=== PATIENT | male | born 1955 | race Caucasian/White ===

== ENCOUNTER 2016-10-23 15:52 | Emergency (ER) | payer OTHER ==
[~2016-10-23] VITALS: Ht 185.4 cm; Wt 119.1 kg
[2016-10-23 16:11] VITALS: BP 160/85; PULSE 80; RESP 11; O2SAT 96
[2016-10-23] MEDS ORDERED: 0.9% Sodium Chloride 1,000 ML IV ONE (16:24)
[2016-10-23] MEDS ORDERED: Ondansetron 2 mg/mL 2 mL Inj IVPUSH ONE (16:25)
[2016-10-23] MEDS ORDERED: HYDROmorphone 0.5 mg/0.5 mL iSecure Syringe IVPUSH PRN (16:25)
--- NOTE | 2016-10-23 16:27 | ED.REPORT ---
HPI-General Illness Date of Service Oct 23, 2016 ED Provider: Mal Castro MD A 61 year old male with a history of hypertension and prostatitis presents to the ED due to an episode of lightheadedness. The pt was going to be seen by urology today, but began feeling dizzy, diaphoretic, lightheaded, confused and shaky while waiting to be seen. This occurred after the nurse left and the pt was alone. He initially believed that his symptoms were due to anxiety but is not sure. The pt had the appointment for urology to follow up after finishing the 14 day course Bactrim prescribed for his prostatitis 2.5 weeks ago. He denies fever, chest pain, shortness of breath, slurred speech, or facial droop. The pt takes Metoprolol 50 mg BID and recently stopped taking Lorazepam. The pt is also complaining of left abdominal and flank pain and numbness radiating down his left thigh that has been present since 05/2016, but does not believe that this is related to his current condition. Nursing Notes Stated Complaint: LEFT FLANK PAIN Chief Complaint: Male Abdominal Pain Nursing Notes Reviewed: Yes Allergies: Coded Allergies: No Known Allergies (Unverified , 10/23/16) Scheduled PRN Hydrocodone-Acetaminophen 5-325 mg (Hydrocodone-Acetaminophen 5-325 mg) 1 Each Tablet 1 TABLET PO Q4H PRN PRN For Pain General Time Seen by MD: 16:17 Chief Complaint Other (Lightheadedness) Hx Obtained From: Patient Arrived By: Walk-in Sudden in Onset?: Yes Onset Occurred: 1 - 4 hours ago Recent Healthcare: No recent hospitalization, Recent doctor visit Similar Sx Previous: No Past Medical History Past Medical History hypertension prostatitis Past Surgical History none reported Smoking History Unknown if Ever Smoker Social History Other Social History: Good social support Ambulatory Status Independent Review of Systems denies facial droop Full Review of Systems Constitutional: Denies: Fever Respiratory: Denies: Shortness of breath Cardiovascular: Denies: Chest pain GI: Reports: Abdominal pain Male: Reports Flank pain Musculoskeletal: Reports: Extremity pain Skin: Reports Diaphoresis, Denies Rash Neurologic: Reports: Confusion, Dizziness, Lightheaded, Numbness, Shaking, Weakness, Denies: Slurred speech Psychiatric: Reports: Anxiety Complete sys rev & neg: except as marked. Physical Exam Vital Signs Vital Signs Date Time Temp Pulse Resp B/P Pulse Ox O2 Delivery O2 Flow Rate FiO2 10/23/16 18:05 70 18 137/74 10/23/16 16:11 37.3 80 11 160/85 96 Room Air Initial VS: Reviewed General/Constitutional: Awake, Alert no facial droop speech fluent, linear, well-organized Head / Eyes: Atraumatic, Normocephalic, PERRL, EOMI ENT: Atraumatic, Airway patent, Mucous membranes moist Neck: Atraumatic, Supple, Full range of motion Respiratory / Chest: Atraumatic, Breath sounds NL, Breath sounds = bilat, No respiratory distress Cardiovascular: Heart rate NL, Regular rhythm, Heart sounds NL good distal pulses Abdomen: Atraumatic, Soft, Non-tender, No distention Back: Atraumatic, Full range of motion mild percussive flank tenderness on left Upper Extremities Upper Extremity / MS: Atraumatic, 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 sensation and strength intact in bilateral upper extremities Lower Extremity / Pelvis / MS: Atraumatic, Full range of motion sensation and strength intact in bilateral lower extremities Skin: Atraumatic, Color NL, No rash, Warm, Dry Male Genitourinary: Atraumatic, Penis NL normal testicular lie no redness or swelling normal circumcised penis no swelling or tenderness in groin region Rectum / Perineum: Atraumatic, No gross blood no fissures, fluctuance, or hemorrhoids about prostate brown stool Neurologic: Oriented X3, Speech NL, No motor deficits, No sensory deficits, CN II - XII intact Psychiatric: Affect NL, Mood NL Interpretation & Diagnostics Interpretation & Diagnostics: CT KUB: IMPRESSION: 1. 2 mm nonobstructing left renal stone. 2. Bilateral perinephric stranding. Finding is nonspecific may represent senescent change versus infectious process. Please correlate with clinical data. 3. Indeterminate hypoattenuating lesions in the kidneys in the right lower liver. 4. Colonic diverticulosis without evidence of diverticulitis. Dictated by: America Gillette MD, PhD on 10/23/2016 at 17:05 Approved by: America Gillette MD, PhD on 10/23/2016 at 17:10 Lab Results Interpretation Result Diagram: 10/23/16 1634 10/23/16 1605 Test 10/23/16 16:05 10/23/16 16:34 10/23/16 16:35 10/23/16 16:37 Sodium Level 133mEq/L (134-144) Potassium Level 4.5mEq/L (3.5-5.2) Chloride Level 94mEq/L (97-108) Carbon Dioxide Level 20mmol/L (18-29) Blood Urea Nitrogen 20mg/dL (8-27) Creatinine 1.89mg/dL (0.76-1.27) Estimat Glomerular Filtration Rate 38mL/min (>59) Glucose Level 105mg/dL (60-99) Calcium Level 10.2mg/dL (8.5-10.1) Magnesium Level 1.7mg/dL (1.6-2.6) Total Bilirubin 0.3mg/dL (0.0-1.2) Aspartate Amino Transf (AST/SGOT) 49U/L (0-50) Alanine Aminotransferase (ALT/SGPT) 62U/L (0-44) Alkaline Phosphatase 33U/L (25-160) Total Protein 7.1g/dL (6.4-8.4) Albumin 4.8g/dL (3.4-5.0) Lipase 47U/L (13-60) White Blood Count 3.9th/mm3 (3.8-10.1) Red Blood Count 4.03mil/mm3 (4.40-5.80) Hemoglobin 13.3g/dL (13.8-17.2) Hematocrit 38.2% (41.0-50.0) Mean Corpuscular Volume 94.8fL (81-100) Mean Corpuscular Hemoglobin 33.0pg (27.0-35.0) Mean Corpuscular Hemoglobin Concent 34.8% (32.0-37.0) Red Cell Distribution Width 12.6% (12.3-15.4) Platelet Count 177bil/L (150-400) Neutrophils (%) (Auto) 69.2% (40-74) Lymphocytes (%) (Auto) 13.9% (14-46) Monocytes (%) (Auto) 13.7% (4-12) Eosinophils (%) (Auto) 2.1% (0-5) Basophils (%) (Auto) 0.8% (0-3) Hold Junior Top Tube Received (Received) Urine Color Straw (YELLOW) Urine Appearance Clear (CLEAR,HAZY) Urine pH 5.5 (5.0-8.0) Urine Specific [place] 1.020 (1.003-1.035) Urine Protein Negativemg/dL (NEG,TRACE) Urine Glucose (UA) Negativemg/dL (NEGATIVE) Urine Ketones Negativemg/dL (NEGATIVE) Urine Occult Blood Large (NEGATIVE) Urine Nitrite Negative (NEGATIVE) Urine Bilirubin Negative (NEGATIVE) Urine Urobilinogen Normalmg/dL (NORMAL) Urine Leukocyte Esterase Negative (NEGATIVE) Urine RBC 11-50/hpf (0-2) Urine WBC 0-5/hpf (0-5) Urine Epithelial Cells None/hpf (NONE-MOD) Urine Crystals None seen (NONE SEEN) Urine Bacteria None/hpf (NONE-FEW) Urine Hyaline Casts None/lpf (NONE) Urine Granular Casts None seen (NONE SEEN) Urine Waxy Casts None seen (NONE SEEN) Urine Red Blood Cell Casts None seen (NONE SEEN) Urine White Blood Cell Casts None seen (NONE SEEN) Urine Mucus None seen (None Seen) Urine Trichomonas None seen (NONE SEEN) Urine Yeast None (NONE SEEN) Urinalysis Comment None Urine Culture Reflexed Not indicated ECG Interpretation ECG Interpretation: normal sinus rhythm with a rate of 64 left axis deviation no acute ST segment changes or T wave abnormalities no prior available for comparison Time: 17:50 Interpreted by: ED physician Re-Eval/Medical Decision Med Decision/Clinical Course A 61 year old male with a history of hypertension and prostatitis presents to the ED due to an episode of lightheadedness. The pt was going to be seen by urology today, but began feeling dizzy, diaphoretic, lightheaded, confused and shaky while waiting to be seen. This occurred after the nurse left and the pt was alone. He initially believed that his symptoms were due to anxiety but is not sure. The pt had the appointment for urology to follow up after finishing the 14 day course Bactrim prescribed for his prostatitis 2.5 weeks ago. He denies fever, chest pain, shortness of breath, slurred speech, or facial droop. The pt takes Metoprolol 50 mg BID and recently stopped taking Lorazepam. The pt is also complaining of left abdominal and flank pain and numbness radiating down his left thigh that has been present since 05/2016, but does not believe that this is related to his current condition. [facility] the patient is afebrile with stable vital signs and in no apparent distress. and prostate exam are unremarkable. Laboratory studies were notable as below: CBC: no leukocytosis stable hematocrit CMP: sodium 133 bun 20 creat 1.89, elevated from prior 1.4 in 2006 otherwise unremarkable urinalysis notable for large blood negative leuk esterase no bacteria no signs of infection Given presence of hematuria on urinalysis and left flank pain I opted to obtain a CT KUB which demonstrated left ureteral stone as described above. Much of the patient's pain presentation is suggestive of underlying sciatica however the acute worsening of his pain in the setting of hematuria is suggestive of renal colic. There is no evidence of urinary tract infection on urinalysis and he is afebrile here in the emergency department. I do not feel that an additional course of antibiotics is warranted. Given his syncopal event earlier I am hesitant to give him Flomax and I do not feel that this is necessary given the small size of his stone. Because of the patient's isolated episode of lightheadedness remains unclear. I suspect that it was vasovagal or orthostatic in nature. History not suggestive of seizure or cardiac arrhythmia. EKG was obtained and interpreted by myself as documented above and patient had no arrhythmias on telemetry monitoring. I see no indication to admit the patient at this time. He was provided with a urine strainer and will follow up with urology as previously advised. Follow-up and return precautions were reviewed in detail and he was discharged in stable condition. Source of Hx: Old records Time of Eval: 17:34 Patient Status: Condition improved Re-Evaluation/Progress Note: Pt rechecked, who is comfortable. He is informed of his diagnosis and the plan for discharge. The pt understands and agrees with the plan. All questions are addressed at this time. Counseled Regarding: Diagnosis, Lab results, Need for follow-up, When/why to return to ED Discharge & Departure Primary Impression: Left ureteral stone Additional Impressions: Hematuria Acute kidney injury Lightheaded Disposition: Home Discharge Condition All VS Reviewed: Yes Condition: Stable Additional Instructions: Thank you for seeking care at emergency room. It is difficult for us to make definitive diagnoses in the ED but we believe that you are experiencing a left-sided kidney stone. Our primary goal today in the ED was to evaluate you for any life-threatening conditions. Your evaluation was reassuring. You will be discharged with a prescription for pain medication, please take as directed. Please use a urine strainer and call tomorrow morning to reschedule your appointment with the urologist. You should follow-up with your primary doctor in the next week. Kidney function was elevated today and needs to be rechecked in the next few days. Make sure to drink plenty of fluids. You should return to the ED immediately if you develop any worsening symptoms, fevers, vomiting, cough, shortness of breath, chest pain, lightheadedness, weakness or any other concerning signs or symptoms. Thank you for letting us partake in your care today. Referrals: John Bragg MD (PCP) Miguel Attestation Portions of this note were transcribed by Kathie Luciano. I, Dr. Castro personally performed the history, physical exam and medical decision-making; I reviewed and confirmed the accuracy of the information in the transcribed note. Signed by: Miguel Da Silva, 10/23/2016 and 1836. copies to: John Bragg MD, Beck O MD Oct 23, 2016 16:27 KATHIE LUCIANO Oct 23, 2016 17:19
[2016-10-23 16:48] LABS: BASOPHILS % (AUTO) 0.8 % (0-3); EOSINOPHILS % (AUTO) 2.1 % (0-5); MONOCYTES % (AUTO) 13.7 % (4-12); Mean Corpuscular Volume 94.8 fL (81-100); NEUTROPHILS % (AUTO) 69.2 % (40-74); Platelet Count 177 bil/L (150-400)
[2016-10-23 16:54] LABS: COLOR,URINE STRAW (YELLOW)
[2016-10-23 16:55] LABS: APPEARANCE,URINE CLEAR (CLEAR,HAZY); OCCULT BLOOD,URINE LARGE (NEGATIVE); PH,URINE 5.5 (5.0-8.0); UROBILINOGEN,URINE NORMAL (NORMAL)
--- NOTE | 2016-10-23 17:11 | DRSVH ---
PROCEDURE: CT KUB ([id number]) INDICATIONS: flank pain TECHNIQUE: Noncontrast 5 mm thick sections acquired from the diaphragms to the symphysis. 5 mm thick coronal an d sagittal reformats were then performed. For radiation dose reduction, the following was used: aut omated exposure control, adjustment of mA and/or kV according to patient size. COMPARISON: None. FINDINGS: Image quality: Excellent. Lung bases: Lung bases are clear. Heart size is normal. Urinary system: Both kidneys are normal in size. 2 mm nonobstructing stone within the midpole of the left kidney. No hydronephrosis. Bilateral perirenal stranding left greater than right is noted which is nonspecific may represent senescent change versus infection. Hypoattenuating lesions noted in the kidneys bilaterally which may represent cysts, however lesions cannot be definitively characterized without the benefit of intravenous contrast. Both ureters appear non-dilated throughout their expect ed courses. Bladder wall thickness is normal; no calcified bladder stones. Other solid organs: Liver and spleen are normal in size. Small hypoattenuating lesion noted in poste rior-superior subsegment of the right hepatic lobe which may represent a cyst or hemangioma, however lesion cannot be definitely characterized without the benefit of intravenous contrast. Gallbladder i s within normal limits. Pancreas is normal in contours. No adrenal nodules. Peritoneum and bowel: Unenhanced bowel loops demonstrate normal wall thickness and caliber. Scattere d diverticuli noted in the colon without evidence of diverticulitis. No free fluid or air. The append ix is normal. Nodes and vessels: No retroperitoneal or mesenteric adenopathy by size criteria. Aorta and inferior vena cava are normal in caliber. Scattered atherosclerotic calcifications are noted in the abdominal pelvic vasculature. Abdominal wall: No ventral hernias. Pelvis: No free pelvic fluid. No adenopathy. Small fat containing bilateral inguinal hernias. Prost ate calcifications are noted. Bones: No suspicious bony lesions. No vertebral body compression fractures. Spine degenerative disc disease and facet arthropathy noted. IMPRESSION: 1. 2 mm nonobstructing left renal stone. 2. Bilateral perinephric stranding. Finding is nonspecific may represent senescent change versus infe ctious process. Please correlate with clinical data. 3. Indeterminate hypoattenuating lesions in the kidneys in the right lower liver. 4. Colonic diverticulosis without evidence of diverticulitis. Dictated by: America Gillette MD, PhD on 10/23/2016 at 17:05 Approved by: America Gillette MD, PhD on 10/23/2016 at 17:10
[2016-10-23 17:18] LABS: Magnesium 1.7 mg/dL (1.6-2.6)
[2016-10-23] MEDS ORDERED: HYDR-4003 PO (17:31)
[2016-10-23 18:05] VITALS: BP 137/74; PULSE 70; RESP 18
== END 2016-10-23 18:06 | disposition home or self-care (01) ==
LOC: SED 15:52 → EDUNIT# 15:52 → EDBD 15:52 → SED 18:06
DX: N20.1 Calculus of ureter (principal); R31.9 Hematuria, unspecified; N17.9 Acute kidney failure, unspecified; R42 Dizziness and giddiness; I10 Essential (primary) hypertension
CPT/HCPCS: 36415; 74176; 80053; 81000; 83690; 83735; 85025; 93005; 96361; 96374; 96375; 99285; J1170; J2405; J7030

== ENCOUNTER 2016-10-29 20:25 | Emergency (ER) | payer OTHER ==
[~2016-10-29] VITALS: Ht 185.4 cm; Wt 117.3 kg
[~2016-10-29 20:25] MED LIST: HYDR-4003 PO
[2016-10-29 20:49] VITALS: BP 167/93; PULSE 66; RESP 16; O2SAT 98
[2016-10-29 21:21] LABS: BASOPHILS % (AUTO) 1.1 % (0-3); EOSINOPHILS % (AUTO) 1.8 % (0-5); MONOCYTES % (AUTO) 13.4 % (4-12); Mean Corpuscular Hemoglobin 33.1 pg (27.0-35.0); Mean Corpuscular Volume 97.3 fL (81-100); Platelet Count 224 bil/L (150-400)
[2016-10-29 22:15] LABS: Magnesium 1.7 mg/dL (1.6-2.6)
[2016-10-29] MEDS ORDERED: 0.9% Sodium Chloride 1,000 ML IV ONE (22:44)
[2016-10-29 22:45] VITALS: BP 166/77; PULSE 71; RESP 20; O2SAT 100
[2016-10-29] MEDS ORDERED: Ondansetron 2 mg/mL 2 mL Inj IVPUSH PRN (22:45)
[2016-10-29 22:55] LABS: APPEARANCE,URINE HAZY (CLEAR,HAZY); COLOR,URINE STRAW (YELLOW); OCCULT BLOOD,URINE LARGE (NEGATIVE); UROBILINOGEN,URINE NORMAL (NORMAL)
[2016-10-29] MEDS: HYDROmorphone 0.5 mg/0.5 mL iSecure Syringe IVPUSH PRN ×2 (23:00→23:51)
--- NOTE | 2016-10-29 23:15 | ED.REPORT ---
HPI-Abd Pain M 40 and Over Date of Service Oct 29, 2016 ED Provider: Margarito Castillo MD Pt is a 61 y.o. male who presents to the ED c/o left-sided flank pain onset 1 week ago. Per pt he was recently diagnosed with kidney stones by his PCP and was prescribed Hydrocodone. He contacted his PCP due to his increasing flank pain and they recommended he come into the ED for further pain management. Pt also reports associated anxiety and hematuria. Nursing Notes Stated Complaint: POSS KIDNEY STONES Chief Complaint: Male Abdominal Pain Nursing Notes Reviewed: Yes Allergies: Coded Allergies: No Known Allergies (Unverified , 10/29/16) Scheduled PRN Hydrocodone-Acetaminophen 5-325 mg (Hydrocodone-Acetaminophen 5-325 mg) 1 Each Tablet 1 TABLET PO Q4H PRN PRN For Pain General Time Seen by MD: 22:43 Chief Complaint Flank pain left Hx Obtained From: Patient Arrived By: Walk-in Sudden in Onset?: Yes Onset Occurred: 1 week ago Symptom Duration: Since onset Location: : Flank left Quality: Painful Severity: Current: Severe Recent Healthcare: Recent doctor visit Past Medical History Past Medical History hypertension prostatitis Past Surgical History none reported Smoking History Unknown if Ever Smoker Social History Other Social History: Good social support Ambulatory Status Independent Review of Systems Male: Reports Flank pain, Reports Hematuria Complete sys rev & neg: except as marked. Psychiatric: Reports: Anxiety Physical Exam Initial Vital Signs Vital Signs (First) Date Time Temp Pulse Resp B/P Pulse Ox O2 Delivery O2 Flow Rate FiO2 10/29/16 20:49 36.4 66 16 167/93 98 Room Air Initial VS: Reviewed, Vital signs abnormal Head / Eyes: Atraumatic, Normocephalic Extremities: Vascular intact, Neuro intact Skin: Warm, Dry, No cyanosis Neurologic: Alert, Oriented, Nonfocal Psychiatric: Mood/affect normal, Behavior normal, Normal thought content General/Constitutional: Awake, Alert, Well appearing, Well developed, Well hydrated, Well nourished, Not toxic appearing Appearance / Presentation: Positive: Obese Respiratory / Chest: Atraumatic, No respiratory distress Rhonchi left lung base Cardiovascular: Heart rate NL, Regular rhythm, Heart sounds NL, Peripheral circulation NL Abdomen: Atraumatic, Soft Tenderness/Guarding/Rebound: Positive: Guarding involuntary, Tender LLQ..., Tender LUQ..., Tender flank L Back: Atraumatic Flank / Spine / Paraspinal: Positive: Flank tender L Left CVA tenderness Interpretation & Diagnostics Lab Results Interpretation Result Diagram: 10/29/16210610/29/162106 Test 10/29/16 21:07 10/29/16 22:37 10/29/16 22:48 White Blood Count 5.5th/mm3 (3.8-10.1) Red Blood Count 4.11mil/mm3 (4.40-5.80) Hemoglobin 13.6g/dL (13.8-17.2) Hematocrit 40.0% (41.0-50.0) Mean Corpuscular Volume 97.3fL (81-100) Mean Corpuscular Hemoglobin 33.1pg (27.0-35.0) Mean Corpuscular Hemoglobin Concent 34.0% (32.0-37.0) Red Cell Distribution Width 13.2% (12.3-15.4) Platelet Count 224bil/L (150-400) Neutrophils (%) (Auto) 65.0% (40-74) Lymphocytes (%) (Auto) 18.3% (14-46) Monocytes (%) (Auto) 13.4% (4-12) Eosinophils (%) (Auto) 1.8% (0-5) Basophils (%) (Auto) 1.1% (0-3) Sodium Level 137mEq/L (134-144) Potassium Level 4.1mEq/L (3.5-5.2) Chloride Level 98mEq/L (97-108) Carbon Dioxide Level 24mmol/L (18-29) Blood Urea Nitrogen 17mg/dL (8-27) Creatinine 1.67mg/dL (0.76-1.27) Estimat Glomerular Filtration Rate 44mL/min (>59) Glucose Level 105mg/dL (60-99) Calcium Level 10.1mg/dL (8.5-10.1) Magnesium Level 1.7mg/dL (1.6-2.6) Total Bilirubin 0.4mg/dL (0.0-1.2) Aspartate Amino Transf (AST/SGOT) 27U/L (0-50) Alanine Aminotransferase (ALT/SGPT) 31U/L (0-44) Alkaline Phosphatase 29U/L (25-160) Total Protein 6.9g/dL (6.4-8.4) Albumin 4.6g/dL (3.4-5.0) Lipase 34U/L (13-60) Hold Junior Top Tube Received (Received) Hold Urine Received (Received) Urine Color Straw (YELLOW) Urine Appearance Hazy (CLEAR,HAZY) Urine pH 6.0 (5.0-8.0) Urine Specific [place] 1.010 (1.003-1.035) Urine Protein Negativemg/dL (NEG,TRACE) Urine Glucose (UA) Negativemg/dL (NEGATIVE) Urine Ketones Negativemg/dL (NEGATIVE) Urine Occult Blood Large (NEGATIVE) Urine Nitrite Negative (NEGATIVE) Urine Bilirubin Negative (NEGATIVE) Urine Urobilinogen Normalmg/dL (NORMAL) Urine Leukocyte Esterase Negative (NEGATIVE) Urine RBC >50/hpf (0-2) Urine WBC 0-5/hpf (0-5) Urine Epithelial Cells Occasional/hpf (NONE-MOD) Urine Crystals None seen (NONE SEEN) Urine Bacteria Few/hpf (NONE-FEW) Urine Hyaline Casts None/lpf (NONE) Urine Granular Casts None seen (NONE SEEN) Urine Waxy Casts None seen (NONE SEEN) Urine Red Blood Cell Casts None seen (NONE SEEN) Urine White Blood Cell Casts None seen (NONE SEEN) Urine Mucus None seen (None Seen) Urine Trichomonas None seen (NONE SEEN) Urine Yeast None (NONE SEEN) Urinalysis Comment None Urine Culture Reflexed Not indicated Lab values outside NL range: no clinical significance. CT Abd / Pelvis Interpretation CONCLUSION: Left nephrolithiasis, with no ureterolithiasis or hydronephrosis. Normal appendix. Diverticulosis with no evidence of diverticulitis. Small hiatal hernia. Radiologist: Robby Azevedo MD Re-Eval/Medical Decision Med Decision/Clinical Course 61-year-old male with microscopic hematuria and left flank pain. He was seen about a week ago and diagnosed with left kidney stone. Review of that CT scan and report shows a 2 mm stone within the kidney, but no obstructing stone or no ureteral stone. He previously was evaluated for prostatitis. He has had a partial workup for that by urology but his appointment last week was interrupted by onset of severe pain and transferred to the hospital. He now has recurrent pain. CT scan again shows no obstructing stone and no reason for his pain. He does have some perinephric fat stranding left greater than right, but no evidence on urinalysis of a urinary tract infection. He is being discharged home to follow-up with his urologist today or tomorrow. Source of Hx: Old records Time of Eval: 01:54 Patient Status: Mild relief, Pain improved Re-Evaluation/Progress Note: Pt rechecked. Pt states his pain is improved. Discussed plan for discharge, pt understands and agrees with plan. Counseled Regarding: Diagnosis, Lab results, Need for follow-up, When/why to return to ED Discharge & Departure Primary Impression: Left flank pain Additional Impression: Hematuria Disposition: Home Vital Signs - All Vital Signs Date Time Temp Pulse Resp B/P Pulse Ox O2 Delivery O2 Flow Rate FiO2 10/30/16 02:59 69 20 132/74 96 Room Air 10/30/16 00:39 90 16 98 10/29/16 22:45 71 20 166/77 100 Room Air 10/29/16 20:49 36.4 66 16 167/93 98 Room Air )( All Prior VS Reviewed: Yes Condition: Improved Patient Instructions: Acute Hematuria (ED) Additional Instructions: The exact cause of ear pain and blood in your urine is not found. The CT scan does not show any blocking stone or other cause for pain. Hydrocodone/ acetaminophen 5/325, one or 2 every 4-6 hours as needed for severe pain, #10 dispensed. Ondansetron 4 mg ODT, 1 tablet dissolved orally 4 times daily as needed for nausea and vomiting, #4 dispensed. Call the urologist for an appointment today, see below. Referrals: Toan Layton MD (PCP) Ansley Leon MD Attestation Portions of this note were transcribed by Shannan Mckenna. I, Dr. Castillo personally performed the history, physical exam and medical decision-making; I reviewed and confirmed the accuracy of the information in the transcribed note. Signed by: Miguel Lombardi, 10/30/16 and 0222 copies to: Ansley Leon MD; Toan Layton MD, Howard L MD Oct 29, 2016 23:15 SHANNAN MCKENNA Oct 29, 2016 23:18
[2016-10-30 00:39] VITALS: PULSE 90; RESP 16; O2SAT 98
[2016-10-30] MEDS ORDERED: _HYDROcodone/APAP 5-325 mg Tablet PO PRN (02:10)
[2016-10-30] MEDS ORDERED: _Ondansetron ODT 4 mg Tablet PO PRN (02:10)
[2016-10-30 02:59] VITALS: BP 132/74; PULSE 69; RESP 20; O2SAT 96
--- NOTE | 2016-10-30 08:36 | DRSVH ---
PROCEDURE: CT KUB (PNL-7475) INDICATIONS: left flank pain, hematuria, F/U CT TECHNIQUE: Noncontrast 5 mm thick sections acquired from the diaphragms to the symphysis. 5 mm thick coronal an d sagittal reformats were then performed. For radiation dose reduction, the following was used: aut omated exposure control, adjustment of mA and/or kV according to patient size. COMPARISON: [facility], CT, CT KUB, 10/23/2016, 16:49. FINDINGS: Image quality: Excellent. Lung bases: Lung bases are clear. Heart size is normal. Urinary system: Both kidneys are normal in size. There are 2 adjacent nonobstructing 2 mm diameter c alculi within the left interpolar kidney. No right nephrolithiasis. No hydronephrosis. There is moder ate bilateral perinephric fat stranding. Both ureters appear non-dilated throughout their expected c ourses. Bladder wall thickness is normal; no calcified bladder stones. Other solid organs: Liver and spleen are normal in size. Gallbladder is within normal limits on non contrast imaging. Pancreas is normal in contours. No adrenal nodules. Peritoneum and bowel: Unenhanced bowel loops demonstrate normal wall thickness and caliber. No free fluid or air. Normal appendix. Nodes and vessels: No retroperitoneal or mesenteric adenopathy by size criteria. Aorta and inferior vena cava are normal in caliber. Abdominal wall: No ventral hernias. Pelvis: No free pelvic fluid. No inguinal hernias or adenopathy. Bones: No suspicious bony lesions. No vertebral body compression fractures. IMPRESSION: 1. Nonobstructing small left interpolar renal calculi. No evidence of urinary tract obstruction. 2. Normal appendix. 3. Bilateral perinephric fat stranding is unchanged, possibly indicating inflammation or infection. Dictated by: Kaiser George M.D. on 10/30/2016 at 8:29 Approved by: Kaiser George M.D. on 10/30/2016 at 8:35
== END 2016-10-30 03:00 | disposition home or self-care (01) ==
LOC: SED 20:25
DX: R10.32 Left lower quadrant pain (principal); R10.12 Left upper quadrant pain; R31.9 Hematuria, unspecified; I10 Essential (primary) hypertension
CPT/HCPCS: 36415; 74176; 80053; 81000; 83690; 83735; 85025; 96361; 96374; 96375; 96376; 99285; J1170; J2060; J2405; J7030